=== PATIENT | female | born 2000 | race Two or more races ===

== ENCOUNTER 2024-08-23 10:18 | Emergency (ER) | payer MEDICAID, SELFPAY ==
[2024-08-23 10:35] VITALS: BP 122/77; PULSE 95; RESP 16; TEMP 36.7; O2SAT 100; BMI 37.3
--- NOTE | 2024-08-23 10:48 | XR_ITS ---
Examination: age Limited TECHNIQUE: Limited transabdominal sonographic images pelvis Exam date and time: August 23, 2024 1119 hours INDICATIONS: Vomiting diarrhea decreased movement beginning last night FINDINGS: Viable intrauterine gestation cephalic presentation spine maternal left Cardiac motion 138 BPM Cervix 3.4 cm closed IMPRESSION: Viable intrauterine gestation cephalic presentation
--- NOTE | 2024-08-23 11:34 | PD.EDNV ---
Nausea/Vomit./Diarrhea-RME/HPI General Chief complaint: Nausea/Vomiting/Diarrhea Stated complaint: CHILLS, VOMITING, DIARRHEA, ABD PAIN Time Seen by Provider: 08/23/24 10:25 Arrival date/time: 08/23/24 10:18 24-year-old female presents emergency department today stating she is approximately 36 weeks patient reports vomiting diarrhea and abdominal cramping after eating tacos last night Limitations: no limitations Related Data Home Medications ?Medication ?Instructions ?Recorded ?Confirmed albuterol sulfate 90 mcg/actuation 2 puff inhalation Q6H PRN 05/24/20 05/24/20 aerosol inhaler Bronchospasm Previous Rx's ?Medication ?Instructions ?Recorded prednisone 20 mg tablet 40 mg (2 x 20 mg) PO QDAY #10 tabs 05/24/20 omeprazole 20 mg tablet,delayed 20 mg PO QDAY #14 tabs 03/13/21 release Allergies Allergy/AdvReac Type Severity Reaction Status Date / Time No Known Allergies Allergy Verified 06/07/21 10:09 Review of Systems Review of Systems Systems Reviewed: All systems reviewed, normal except as documented Constitutional Constitutional: Reports system reviewed and no additional complaints, except as documented, Denies fever(s) and Denies headache(s) Eyes Eyes: Reports system reviewed and no additional complaints, except as documented and Denies blurry vision ENT Ears, Nose, Mouth, and Throat: Reports system reviewed and no additional complaints, except as documented, Denies headache(s), Denies nasal congestion and Denies nasal discharge Cardiovascular Cardiovascular: Reports system reviewed and no additional complaints, except as documented, Denies chest pain and Denies dyspnea Respiratory Respiratory: Reports system reviewed and no additional complaints, except as documented, Denies chest congestion, Denies cough and Denies dyspnea Gastrointestinal Gastrointestinal: Reports system reviewed and no additional complaints, except as documented, Denies abdominal pain, Reports cramping (With diarrhea) and Reports loose stools Integumentary/Breasts Skin/Breast: Reports system reviewed and no additional complaints, except as documented and Denies rash Neurologic Neurologic: Reports system reviewed and no additional complaints, except as documented, Reports as per HPI and Denies headache(s) Past Medical History Past Medical History CARDIAC: Negative Cardiac Disorders or Congestive Heart Failure RESPIRATORY: Positive Asthma; Negative Chronic Obstructive Pulmonary Disease (COPD) GENITOURINARY: Negative Renal Disease ENDOCRINE: Negative Diabetes Mellitus Type 1 or Diabetes Mellitus Type 2 HEMATOLOGIC: Negative Sickle Cell Disease Social History SMOKING STATUS: Former smoker ED Exam General Limitations: Present no limitations General appearance: Present alert and in no apparent distress Head Head exam: Present atraumatic Eye Eye exam: Present normal appearance, PERRL and EOMI ENT ENT exam: Present normal exam, normal oropharynx and mucous membranes moist Neck Neck exam: Present normal inspection, full ROM and trachea midline Chest Chest inspection: Present normal inspection and symmetric chest wall rise Respiratory Respiratory exam: Present normal lung sounds bilaterally Cardiovascular Cardiovascular exam: Present regular rate, normal rhythm and normal heart sounds Abdominal Exam Abdominal exam: Present soft and normal bowel sounds; Absent distention or tenderness Extremities Exam Extremities exam: Present normal inspection and full ROM Back Exam Back exam: Present normal inspection and full ROM Neurological Exam Neurological exam: Present alert, oriented X3 and CN II-XII intact Psychiatric Psychiatric exam: Present normal affect and normal mood Skin Skin exam: Present warm, dry, intact and normal color Course Quality Measures none Orders Category Date Time Status US OB limited Stat Exams 08/23/24 10:48 Completed Vital Signs Vital signs: Vital Signs Temperature 98.0 F 08/23/24 10:35 Pulse Rate 95 08/23/24 10:35 Respiratory Rate 16 08/23/24 10:35 Blood Pressure 122/77 08/23/24 10:35 Pulse Oximetry (%) 100 08/23/24 10:35 Oxygen Delivery Method Room Air 08/23/24 10:35 O2 saturation 100% room air within normal limits Nausea/Vomiting/Diarrhea MDM Narrative MDM Narrative:: 24-year-old female presents emergency department today stating she is approximately 36 weeks patient reports vomiting diarrhea and abdominal cramping after eating tacos last night On exam patient well-appearing patient is not appear toxic Ultrasound obtained Symptoms highly consistent with gastroenteritis/food poisoning Patient reports no vaginal bleeding no pelvic cramping Explained to the patient she should follow-up with [facility] for worsening symptoms return immediately Patient data External records reviewed:: [facility] previous records Clinical information provided by:: patient Social determinants that could affect healthcare access:: none Patient has the following chronic illnesses:: None How is presenting disease/condition affected by chronic disease/condition?: no chronic disease Evaluation data The following diagnostics were reviewed and interpreted by me:: radiology exam(s) Lab and/or radiology exams considered but not ordered:: Radiology obtain Interpretation Summary: Reviewed by me Medications / Prescriptions Medications / Prescriptions considered but not ordered:: Given no meds Medication administrations:: Given no meds Consultations Consultation(s) initiated? (list below): No Diagnosis Nausea Differential Diagnosis: traveler's diarrhea, food poisoning and gastroenteritis Most likely diagnosis given after review of the tests above:: Gastroenteritis Admission Indicated Admission indicated?: not indicated Admission Request Was there a request for admission?: No Disposition Plan Disposition Plan: Discharge Discharge Attestation Discharge Attestation: The patient and all family members were given an opportunity to ask questions and understood the discharge instructions. Discharge instructions specifically effects, indications for sooner follow up or return to the emergency department, and the expected course of current diagnosis. Patient condition: Stable Discharge Plan Plan Patient Disposition: HOME (Self Care) Disposition Comment: Stable Prescriptions/Referrals Prescriptions/Med Rec: No Action omeprazole 20 mg tablet,delayed release (DR/EC) 20 mg PO QDAY Qty: 14 0RF albuterol sulfate 90 mcg/actuation Hfa Aerosol Inhaler 2 puff INHALATION Q6H PRN (Reason: Bronchospasm) prednisone 20 mg tablet 40 mg PO QDAY Qty: 10 0RF Referrals: Terrence Andrea PA-C [Primary Care Provider] - 08/24/24 Problem List Clinical Impression: Gastroenteritis Patient/Caregiver Discharge Instructions Education Materials: How the Colon Works Additional Instructions: Please follow-up with [facility] as discussed for worsening symptoms return immediately Print Language: Bulgarian Stand Alone Forms: Nicol Award Info., Patient Portal Info Letter ELENO/SHLOMO Supervising Physician ELENO/SHLOMO Supervising Physician: Dr Burnette
== END 2024-08-23 11:43 | disposition home or self-care (01) ==
PROVIDERS: Emergency Provider Emergency Medicine; PCP Family Medicine
DX: O99.613 Diseases of the digestive system complicating pregnancy, third trimester (principal); K52.9 Noninfective gastroenteritis and colitis, unspecified; Z3A.36 36 weeks gestation of pregnancy
CPT/HCPCS: 76815; 99284

== ENCOUNTER 2024-09-24 19:29 | Inpatient (IN) | payer MEDICAID, SELFPAY ==
[2024-09-24] VITALS (7 sets, daily range): BP systolic 128–142; BP diastolic 71–79; PULSE 80–98; TEMP 37.1; O2SAT 98; BMI 39.2
[2024-09-24 20:23] LABS: Basophils % (Auto) 0 % (0-2.5); Eosinophils # (Auto) 0.1 Thou/mm3 (0.0-0.5); Eosinophils % (Auto) 1 % (0-10); Hematocrit 36.9 % (36.0-46.0); Hemoglobin 12.5 g/dL (12.0-16.0); Immature Granulocytes % (Auto) 1 % (0-0); Immature Granulocytes Auto 0.05 Thou/mm3 (0.00-0.00); Lymphocytes # (Auto) 1.9 Thou/mm3 (1.0-4.8); Lymphocytes % (Auto) 21 % (10-50); Mean Corpuscular HGB Conc 33.9 g/dl (31.0-37.0); Mean Corpuscular Hemoglobin 27.5 pg (25.0-35.0); Mean Corpuscular Volume 81 fL (80-100); Monocytes # (Auto) 0.8 Thou/mm3 (0.0-0.8); Monocytes % (Auto) 8 % (0-12); Neutrophils # (Auto) 6.5 Thou/mm3 (1.8-7.7); Neutrophils % (Auto) 70 % (37-80); Nucleated Red Blood Cell % 0 /100 WBC (0); Platelet Count 277 Thou/mm3 (140-440); RDW Standard Deviation 42.8 fL (36.4-46.3); Red Blood Count 4.54 Miln/mm3 (4.00-5.20); White Blood Count 9.2 Thou/mm3 (3.6-11.0)
--- NOTE | 2024-09-24 20:31 | XR_ITS ---
Examination: Complete OB ultrasound greater than 14 weeks Date and time of exam: September 24, 2024 at 2121 hrs. Indications: Preop induction of labor Findings: Viable intrauterine single fetus with single amniotic sac presentation cephalic Cardiac motion 155 BPM Placenta anterior grade 3 Umbilical cord insertion seen Amniotic fluid index 3.9 cm Cervix obscured by the fetus Ovaries obscured by the uterus. Composite estimated gestational age based on BPD, head circumference, abdominal circumference, femur length is 38 weeks 0 days Is estimated weight 3632.8 g. Survey of intracranial anatomy, spinal anatomy, abdominal anatomy, four-chamber heart performed with no abnormalities identified. Impression: Viable intrauterine gestation cephalic presentation Estimated gestational age 38 weeks 0 days Estimated weight 3632.8 g
[2024-09-24 22:48] LABS: Amphetamine/Metham Scrn,Ur OB Negative (Negative); Benzoylecgonine Screen, Ur OB Negative (Negative); Opiate Screen,Urine OB Negative (Negative); THC Screen,Urine OB Positive (Negative)
[2024-09-24 22:49] LABS: THC U Confirm* See Sep Rpt
[2024-09-24 23:06] LABS: Syphilis Nonreactive (Nonreactive)
[2024-09-25] VITALS (32 sets, daily range): BP systolic 120–154; BP diastolic 57–74; PULSE 74–107; RESP 16–18; TEMP 36.6–37.1
--- NOTE | 2024-09-25 09:19 | ESHP_ITS ---
Documentation for date of: 09/25/24 OB Labor/Induct. HPI History of Present Illness History of sections: No History of present illness: Presents for induction of labor at 41 weeks and one day. The patient was scheduled for induction on 09-16-2024 but has been refusing to come in and pushing her induction by one day at a time. She receives mental care at the [facility] with JOSE ALFREDO Flores. Her current has been uncomplicated, and she has been compliant with all her visits. The patient was group B strep positive on 09-05-2024, RPR-negative, and NIPT negative times three with all additional screening tests negative. Her initial panel on 02-29-2024 showed blood group O-positive, antibody screen negative, HIV-negative, gonorrhea and chlamydia negative, hepatitis B-negative, hepatitis C-negative, RPR nonreactive, and urine culture positive for gram- negative lactobacillus species. Diagnostic Test Results and Labs: - Group B Streptococcus (09-05-2024): Positive - RPR: Negative - NIPT: Negative times three - Initial panel (02-29-2024): Blood group O-positive, antibody screen negative, HIV-negative, gonorrhea and chlamydia negative, hepatitis B-negative, hepatitis C-negative, RPR nonreactive - Urine culture: Positive for gram-negative, lactobacillus species - [facility] ultrasound level 2 (04-25-2024): Single intrauterine gestation, heart tone 142, cephalic presentation, anterior placenta, normal cord appearance, amniotic fluid index within normal limits, cervical length 4.37 cm, adnexa within normal limits, anatomic screen within normal limits - Ultrasound on admission (09-24-2024): Viable intrauterine single gestation, cephalic presentation, heart rate 155, placenta anterior grade 3, amniotic fluid index 3.9, cervix obscured, ovaries obscured, composite estimated weight based on BPD, head circumference, abdominal circumference, and femur length is 38 weeks, estimated weight 3632 grams, anatomy survey within normal limitsts. History of Present Adequate Care: Yes Labs Labs: Positive: Group Beta Strep and Negative: HIV, Chlamydia and Gonorrhea Review of Systems Review of Systems Systems Reviewed: All systems reviewed, normal except as documented Past Medical History Surgical History SURGICAL: Negative Section Meds Home Medications and Allergies Home Medications ?Medication ?Instructions ?Recorded ?Confirmed ?Type albuterol sulfate 90 mcg/actuation 2 puff inhalation Q6H PRN 05/24/20 09/24/24 History aerosol inhaler Bronchospasm no.58-iron bisglycinate 400 cap PO DAILY 09/24/24 09/24/24 History 10 mg iron-folic acid 400 mcg capsule Allergies Allergy/AdvReac Type Severity Reaction Status Date / Time No Known Allergies Allergy Verified 09/24/24 19:56 OB Exam Physical Exam Vital signs: Temp Pulse BP Pulse Ox 98.8 F 84 134/72 H 98 09/25/24 03:24 09/25/24 07:50 09/25/24 07:50 09/24/24 20:18 Constitutional Constitutional: no acute distress Routine HEENT Exam Head: Present normocephalic and atraumatic Eye: Present EOMI and PERRL ENT: Present mucous membranes moist Routine Neck Exam Neck: Present supple and trachea midline Routine Cardiovascular Exam Cardiovascular: Present RRR Routine Abdominal Exam Abdominal: Present soft and normoactive bowel sounds Detailed Labor and Delivery Exam Comments: - Cervical exam: Cervix is fingertip thick and high. - presentation: Cephalic. - Axles present, measuring 15 by 15. - heart tones: Baseline 135 with moderate variability, no decelerations. - heart rate on ultrasound: 155. Routine Extremities Exam Extremities: Present full ROM Routine Skin Exam Skin: Present intact, dry and warm Routine Neurological Exam Neurological: Present alert, oriented X3 and CN II-XII intact Routine Psychiatric Exam Psychiatric: Present normal affect and normal thought process OB Results Labs 09/24/24 19:50 Labs: Short CBC 09/24/24 Range/Units 19:50 WBC 9.2 (3.6-11.0) Thou/mm3 Hgb 12.5 (12.0-16.0) g/dL Hct 36.9 (36.0-46.0) % Plt Count 277 (140-440) Thou/mm3 OB Assessment & Plan Assessment and Plan (1) Post term at 41 weeks gestation: Status: Acute Assessment and plan: Postterm : - 41 weeks and 1 day gestation - Admit for induction of labor - Cervidil for cervical ripening - Proceed to oxytocin once favorable Ramirez's score attained - Patient refusing to come in, pushing induction by one day at a time Obesity: - BMI 46.481, weight 246 pounds - Complicating - Encourage ambulation during latent phase - Confined to bed in active phase Group B Streptococcus: - Positive - Antibiotic prophylaxis with ampicillin Cervical Ripening and Induction: - IV access and fluids (lactated Ringer's at 125 cc/hour) - Continuous maternal- monitoring - Monitor for signs of infection - Cervix fingertip thick and high on admission Pain Management: - Epidural available at any time Delivery: - Anticipate vaginal delivery - presentation cephalic - Estimated weight 3632 grams (38 weeks) based on ultrasound (2) Obesity affecting in third trimester: Status: Acute
[2024-09-25] MEDS: MISOPROSTOL 50 mCg TABLET PO ×3 (13:05→21:32)
--- NOTE | 2024-09-25 19:56 | PD.LDPN ---
Documentation for date of: 09/25/24 OB Labor Progress Note Pain Control Pain control: tolerating well Pelvic Exam Dilation (cm): 1-3 Effacement (%): thick station: -3 Amniotic membrane status: Intact Contractions Monitor mode: External Contraction frequency: irreg Contraction duration: 20 Contraction phase: Resting Contraction intensity: Mild Status status: Category l Assessment and Plan Assessment: induction ongoing CNM Management MD Consulted (describe details below): Yes
[2024-09-26] VITALS (150 sets, daily range): BP systolic 106–152; BP diastolic 55–93; PULSE 58–112; RESP 17–22; TEMP 36.6–37.1; O2SAT 81–100
[2024-09-26] MEDS: MISOPROSTOL 50 mCg TABLET PO (01:38)
[2024-09-26] MEDS: OXYTOCIN in NS 30 units 30 UNIT/500 ML BAG IV (06:04)
[2024-09-26] MEDS: RINGERS LACTATED 1000 ML 1,000 ML 100 ML IV ×3 (06:06→12:12)
--- NOTE | 2024-09-26 07:34 | PD.LDPN ---
Documentation for date of: 09/26/24 OB Labor Progress Note Pain Control Pain control: tolerating well Pelvic Exam Dilation (cm): 3 Effacement (%): 60 station: -1 Amniotic membrane status: Intact Contractions Monitor mode: External Contraction frequency: irreg Contraction phase: Resting Contraction intensity: Mild Status status: Category l CNM Management MD Consulted (describe details below): Yes
[2024-09-26] MEDS: Ampicillin Inj 2,000 MG in SODIUM CHLORIDE 0.9% (P) 100 ML 200 MG IV (10:20)
--- NOTE | 2024-09-26 10:53 | PD.LDPN ---
Documentation for date of: 09/26/24 OB Labor Progress Note Pain Control Pain control: tolerating well Pelvic Exam Dilation (cm): 4 Effacement (%): 80 station: -1 Amniotic membrane status: Ruptured (SROM- lite mec) Contractions Monitor mode: External Contraction frequency: 5 minutes Contraction duration: 40-50 Contraction phase: Resting Contraction intensity: Moderate Status status: Category l Assessment and Plan Assessment: induction ongoing Plan OB labor note: continuous present management Comments: Continue pitocin Pt to get an epidural Start GBS protocol Anticipae
[2024-09-26] MEDS: Ampicillin Inj 1,000 MG in SODIUM CHLORIDE 0.9% (P) 50 ML 50 MG IV ×2 (14:19→18:20)
[2024-09-26] MEDS: BENZO/LANO/ALOE (Dermoplast) 60 GM CAN 1 SPRAY TOP (20:29)
[2024-09-26] MEDS: MINERAL OIL 30 ML UDC TOP (20:29)
[2024-09-26] MEDS: OXYTOCIN in NS 20 units 20 UNIT/1,000 ML BAG 125 UNIT IV (20:29)
[2024-09-26] MEDS: TRANEXAMIC ACID 1,000 MG IVPB 1,000 MG/100 ML BAG 200 MG IV ×2 (20:49→22:24)
[2024-09-26] MEDS: ceFAZolin/D5W 2 GM IV 2 GM/100 ML BAG IV (21:24)
--- NOTE | 2024-09-26 21:41 | PD.LDDELS ---
Data (David) Data Hx Section: No Maternal Blood Type: O Pos Rubella Titre: Positive RPR: Non-reactive Labs: Positive: Group Beta Strep, Negative: RPR, Hepatitis B, HIV, Chlamydia and Gonorrhea and Unknown: Herpes Type 1 and Herpes Type 2 : 1 Para: 0 Term: 0 : 0 Livin : 0 Delivery Data (David) Labor Data Stimulated/Augmented: No Induction: No ROM Date: 09/26/24 ROM Time: 10:07 Rupture Type: SROM Amniotic Fluid: Thin Meconium Delivery Data EDC: 09/16/24 EDC calculated by:: LMP/early US confirmation Labor Onset Stage 1 Date: 09/26/24 Labor Onset Stage 1 Time: 12:08 Labor Onset Stage 2 Date: 09/26/24 Labor Onset Stage 2 Time: 19:08 Delivery Date: 09/26/24 Delivery Time: 20:20 Gestational age (weeks): 41 Gestational age (days): 3 Placenta Delivery Date: 09/26/24 Placenta Delivery Time: 20:36 Delivered by: Leighann Flores Delivery nurse: Atiya Will Health Policy Analyst at delivery: No Support person(s) at delivery: FOB Delivery Method Delivery: Vaginal Delivery Type: Spontaneous Presentation: Vertex Position: OA Anesthesia Type Primary Anesthesia: Epidural Delivery Room Medications Intrapartum Medications: Antibiotics Post Delivery Medications: Antibiotics Post Delivery Medications N/A: Yes Placenta Placenta Delivery: Spontaneous Placenta Cultures Obtained: No Placenta Sent for Examination: No Cord Sample: Cord Blood Obtained Episiotomy Episiotomy: None Lacerations #1: Vaginal: 2nd degree Perineal repair Sutures used for repair: 3.0 Vicryl (CT) EBL Estimated blood loss (ml): 400 Umbilical Cord Umbilical Vessels: 3 Nuchal Cord: x1 Body Cord: Not Applicable Additional Procedures Patient was complete this evening and after a few pushes had an of a viable female . Infant's head delivered with a tight nuchal cord reduced. 's anterior shoulder delivered with gentle downward traction subsequent deliver the posterior shoulder and the body without complications. placed on mother's abdomen. Vigorous cry upon stimulation. Cord was clamped cut by CNM. Cord blood obtained. Three-vessel cord noted. Placenta expelled spontaneously and intact. Patient sustained multiple lacerations within the vagina repaired using a 3-[address] suture x 3. Due to friable tissue a vaginal packing was placed and will be removed tomorrow by CNM. Perineum intact. Patient received TXA x 1 and IV Pitocin. She will receive another TXA tonight. Excellent hemostasis achieved after vigorous fundal massage and removal of clots from the posterior fornix. EBL 400. Sponge and needle count correct. was transferred to NICU for observation. Mother is stable and recovering in LDR. 2 g of Ancef x 1 now. Hornell Data (David) Hornell Data Infant Gender: Female Weight Grams: 3800 1 Minute Total: 7 5 Minute Total: 9 10 Minute Total: 9
--- NOTE | 2024-09-26 22:00 | PC.NURSE ---
2039- in and out catheter by colt porras cnm, noted 50 ml out.
[2024-09-27 01:03] VITALS: BP 131/75; PULSE 85; RESP 18; TEMP 36.4; O2SAT 99
[2024-09-27] MEDS: HYDROcodone/APAP 5/325 TABLET 1 TAB PO ×2 (01:22→10:08)
[2024-09-27 03:39] LABS: Basophils % (Auto) 0 % (0-2.5); Eosinophils % (Auto) 0 % (0-10); Hematocrit 34.5 % (36.0-46.0); Hemoglobin 11.6 g/dL (12.0-16.0); Immature Granulocytes % (Auto) 0 % (0-0); Immature Granulocytes Auto 0.08 Thou/mm3 (0.00-0.00); Lymphocytes # (Auto) 1.8 Thou/mm3 (1.0-4.8); Lymphocytes % (Auto) 10 % (10-50); Mean Corpuscular HGB Conc 33.6 g/dl (31.0-37.0); Mean Corpuscular Hemoglobin 27.6 pg (25.0-35.0); Mean Corpuscular Volume 82 fL (80-100); Monocytes # (Auto) 1.5 Thou/mm3 (0.0-0.8); Monocytes % (Auto) 8 % (0-12); Neutrophils # (Auto) 14.7 Thou/mm3 (1.8-7.7); Neutrophils % (Auto) 81 % (37-80); Nucleated Red Blood Cell % 0 /100 WBC (0); Platelet Count 220 Thou/mm3 (140-440); RDW Standard Deviation 43.2 fL (36.4-46.3); Red Blood Count 4.21 Miln/mm3 (4.00-5.20); White Blood Count 18.1 Thou/mm3 (3.6-11.0)
[2024-09-27 05:20] VITALS: BP 125/70; PULSE 98; RESP 20; TEMP 36.6; O2SAT 98
--- NOTE | 2024-09-27 07:01 | PC.NURSE ---
DALILAM Leighann Flores called to inform of WBC values from 9.2 to 18.1, high heart rates ranging in high 90s, and high BP. Per Leighann, do a repeat CBC for 0900
[2024-09-27 08:00] VITALS: BP 125/82; PULSE 96; RESP 18; TEMP 36.9; O2SAT 98
[2024-09-27] MEDS: IBUPROFEN TAB 400 MG TABLET 800 MG PO ×2 (08:27→20:33)
[2024-09-27] MEDS: DOCUSATE SOD 100 MG CAPSULE PO ×2 (08:27→20:33)
--- NOTE | 2024-09-27 10:01 | ESPR_ITS ---
Subjective Subjective Interval history: day 1. Patient is stable and afebrile doing well. Denies dizziness shortness of breath. [place] is still in place. Breast-feeding infant. No complaints. Exam Vital Signs Temp Pulse Resp BP Pulse Ox O2 Del Method 98.5 F 96 18 125/82 98 Room Air 09/27/24 08:00 09/27/24 08:00 09/27/24 08:00 09/27/24 08:00 09/27/24 08:00 09/27/24 08:00 Constitutional Constitutional: no acute distress Routine HEENT Exam Head: Present normocephalic and atraumatic Eye: Present EOMI, PERRL and normal accommodation ENT: Present mucous membranes moist Routine Neck Exam Neck: Present supple, full ROM and trachea midline Routine Respiratory Exam Respiratory: Present chest non-tender, lungs clear, normal breath sounds and no resp distress Routine Cardiovascular Exam Cardiovascular: Present RRR Routine Abdominal Exam Abdominal: Present soft and normoactive bowel sounds Routine Exam External: Present normal urethra appearance and lacerations (healing, removed vaginal packing); Absent lesions Routine Extremities Exam Extremities: Present full ROM Routine Back/Spine/Pelvis Exam Back/Spine: Present full ROM Routine Skin Exam Skin: Present intact, dry and warm Routine Neurological Exam Neurological: Present alert, oriented X3 and CN II-XII intact Routine Psychiatric Exam Psychiatric: Present normal affect and normal thought process Objective Labs 09/27/24 03:19 Labs: Laboratory Results - last 24 hr 09/27/24 03:19 WBC 18.1 H D RBC 4.21 Hgb 11.6 L Hct 34.5 L MCV 82 MCH 27.6 MCHC 33.6 RDW Std Deviation 43.2 Plt Count 220 D Neut % (Auto) 81 H Lymph % (Auto) 10 [place] % (Auto) 8 Eos % (Auto) 0 Baso % (Auto) 0 Neut # (Auto) 14.7 H Lymph # (Auto) 1.8 [place] # (Auto) 1.5 H Eos # (Auto) 0.0 Baso # (Auto) 0.0 Immature Gran # (Auto) 0.08 H Absolute Nucleated RBC 0.00 Immature Gran % 0 Nucleated RBC % 0 Assessment & Plan Problem List (1) Normal spontaneous vaginal delivery: Status: Acute (2) Encounter for care of lactating mother: Status: Acute (3) Obesity affecting in third trimester: Status: Acute (4) Post term at 41 weeks gestation: Status: Acute Plan Comment Plan Comment: Vaginal packing was removed patient tolerated procedure well bleeding is minimal laceration is healing. Continue routine care. DC alon Mon[place]. Encourage patient to ambulate more today. Anticipate discharge home tomorrow. Time Spent With Patient Time: Total time spent is greater than 50% in coordination of care (as documented) at patient's floor/unit and/or counseling patient:
[2024-09-27 10:53] LABS: Basophils % (Auto) 0 % (0-2.5); Eosinophils # (Auto) 0.1 Thou/mm3 (0.0-0.5); Eosinophils % (Auto) 1 % (0-10); Hematocrit 32.6 % (36.0-46.0); Hemoglobin 10.8 g/dL (12.0-16.0); Immature Granulocytes % (Auto) 1 % (0-0); Immature Granulocytes Auto 0.09 Thou/mm3 (0.00-0.00); Lymphocytes # (Auto) 2.6 Thou/mm3 (1.0-4.8); Lymphocytes % (Auto) 18 % (10-50); Mean Corpuscular HGB Conc 33.1 g/dl (31.0-37.0); Mean Corpuscular Hemoglobin 27.5 pg (25.0-35.0); Mean Corpuscular Volume 83 fL (80-100); Monocytes # (Auto) 1.4 Thou/mm3 (0.0-0.8); Monocytes % (Auto) 10 % (0-12); Neutrophils # (Auto) 10.4 Thou/mm3 (1.8-7.7); Neutrophils % (Auto) 71 % (37-80); Nucleated Red Blood Cell % 0 /100 WBC (0); Platelet Count 234 Thou/mm3 (140-440); Red Blood Count 3.93 Miln/mm3 (4.00-5.20); White Blood Count 14.6 Thou/mm3 (3.6-11.0)
--- NOTE | 2024-09-27 11:25 | PC.CC ---
Tari Sandoval is a 24-year-old female admitted for labor and delivery. Photographer News made contact with Pt at bedside to complete social service assessment and discuss discharge disposition. Role and reason for the contact was explained to Pt. Demographic information was verified. Pt identified Casey Copeland as her surrogate decision maker. Pt is independent with all ADLs, no DME. PCP is [facility]. At time of discharge patient will return home, father of baby will provide transportation. Discharge Plan: Home Next of Kin: Casey Copeland PCP: [facility]
[2024-09-27 12:00] VITALS: BP 134/78; PULSE 95; RESP 18; TEMP 36.8; O2SAT 97
--- NOTE | 2024-09-27 12:00 | PC.CC ---
CWS report, called completed and report faxed.
[2024-09-27 15:45] VITALS: BP 131/84; PULSE 80; RESP 17; TEMP 36.7; O2SAT 99
[2024-09-27] MEDS: ACETAMINOPHEN 325 MG TABLET 650 MG PO (16:40)
[2024-09-27 21:00] VITALS: BP 130/66; PULSE 93; RESP 18; TEMP 36.6; O2SAT 99
[2024-09-28 04:00] VITALS: BP 140/74; PULSE 77; RESP 18; TEMP 36.4; O2SAT 97
[2024-09-28] MEDS: IBUPROFEN TAB 400 MG TABLET 800 MG PO (04:45)
--- NOTE | 2024-09-28 08:33 | PD.LDDS ---
DS: Providers Provider Date of admission: 09/24/24 19:29 Primary care physician: eTrrence Andrea PA-C Admitting Provider: Leighann Flores CNM Attending Provider on Admission: Zaid Ramirez MD Attending Provider on DC: Leighann Flores CNM Discharging Provider: Leighann Flores CNM Anticipated date of discharge: 09/27/24 DS: Diagnosis Discharge Diagnosis (1) Normal spontaneous vaginal delivery: Status: Acute (2) Encounter for care of lactating mother: Status: Acute (3) Obesity affecting in third trimester: Status: Acute (4) Post term at 41 weeks gestation: Status: Acute Problem List Completed Was Problem List Reviewed/Reconciled?: Yes Summary/Hosp Course Brief History: Presents for induction of labor at 41 weeks and one day. The patient was scheduled for induction on 09-16-2024 but has been refusing to come in and pushing her induction by one day at a time. She receives mental care at the [facility] with JOSE ALFREDO Flores. Her current has been uncomplicated, and she has been compliant with all her visits. The patient was group B strep positive on 09-05-2024, RPR-negative, and NIPT negative times three with all additional screening tests negative. Her initial panel on 02-29-2024 showed blood group O-positive, antibody screen negative, HIV-negative, gonorrhea and chlamydia negative, hepatitis B-negative, hepatitis C-negative, RPR nonreactive, and urine culture positive for gram-negative lactobacillus species. Diagnostic Test Results and Labs: - Group B Streptococcus (09-05-2024): Positive - RPR: Negative - NIPT: Negative times three - Initial panel (02-29-2024): Blood group O-positive, antibody screen negative, HIV-negative, gonorrhea and chlamydia negative, hepatitis B-negative, hepatitis C-negative, RPR nonreactive - Urine culture: Positive for gram-negative, lactobacillus species - [facility] ultrasound level 2 (04-25-2024): Single intrauterine gestation, heart tone 142, cephalic presentation, anterior placenta, normal cord appearance, amniotic fluid index within normal limits, cervical length 4.37 cm, adnexa within normal limits, anatomic screen within normal limits - Ultrasound on admission (12-29-2024): Viable intrauterine single gestation, cephalic presentation, heart rate 155, placenta anterior grade 3, amniotic fluid index 3.9, cervix obscured, ovaries obscured, composite estimated weight based on BPD, head circumference, abdominal circumference, and femur length is 38 weeks, estimated weight 3632 grams, anatomy survey within normal limitsts. 09/26/24: Patient was complete this evening and after a few pushes had an of a viable female . Infant's head delivered with a tight nuchal cord reduced. Infant's anterior shoulder delivered with gentle downward traction subsequent deliver the posterior shoulder and the body without complications. Infant placed on mother's abdomen. Vigorous cry upon stimulation. Cord was clamped cut by CNM. Cord blood obtained. Three-vessel cord noted. Placenta expelled spontaneously and intact. Patient sustained multiple lacerations within the vagina repaired using a 3-[address] suture x 3. Due to friable tissue a vaginal packing was placed and will be removed tomorrow by CNM. Perineum intact. Patient received TXA x 1 and IV Pitocin. She will receive another TXA tonight. Excellent hemostasis achieved after vigorous fundal massage and removal of clots from the posterior fornix. EBL 400. Sponge and needle count correct. Infant was transferred to NICU for observation. Mother is stable and recovering in LDR. 2 g of Ancef x 1 now. 09/27/2024: day 1. Patient is stable and afebrile doing well. No complaints. Denies dizziness shortness of breath. Vaginal packing was removed patient tolerated procedure well bleeding is minimal laceration is healing. Continue routine care. DC the [place]. Encourage patient to ambulate more today. Anticipate discharge home tomorrow. 09/28/2024: day 2 patient is stable and afebrile doing well. No complaints. Denies dizziness shortness of breath. Reports minimal lochia. Patient is breast-feeding and bottlefeeding. Eager to go home. Uterus nontender fundus firm minimal lochia. Discharge instructions given. Patient to follow-up with Leighann Flores CNM in 3 weeks Peripartum Data Delivery Method: Normal Vaginal Delivery Episiotomy Description: None Laceration Description: yes and see Delivery Summary complications: other (Vaginal laceration) [place] 1: Gender: Female Disposition of : home Status at Discharge Cognitive/behavioral status at discharge: Alert and oriented x 3 Functional status at discharge: independent ambulation Overall status at discharge: patient is progressing back to baseline Time Spent with Patient Time attestation: Total time spent providing and/or coordinating discharge services: Time spent: Greater than 30 minutes Exam Vital Signs Temp Pulse Resp BP Pulse Ox 98.4 F 93 22 H 136/70 H 100 09/26/24 19:14 09/26/24 20:48 09/26/24 19:14 09/26/24 20:48 09/26/24 15:59 Constitutional Constitutional: no acute distress Routine HEENT Exam Head: Present normocephalic and atraumatic Eye: Present EOMI, PERRL and normal accommodation ENT: Present mucous membranes moist Routine Neck Exam Neck: Present supple, full ROM and trachea midline Routine Respiratory Exam Respiratory: Present chest non-tender, lungs clear, normal breath sounds and no resp distress Routine Cardiovascular Exam Cardiovascular: Present RRR Routine Abdominal Exam Abdominal: Present soft and normoactive bowel sounds; Absent tenderness or distended Comments: Uterus nontender Fundus Routine Exam External: Present normal urethra appearance, swelling and lacerations (healing, vaginal packing removed); Absent tenderness or lesions Routine Extremities Exam Extremities: Present full ROM, pulses intact and normal capillary refill; Absent calf tenderness or tenderness Routine Back/Spine/Pelvis Exam Back/Spine: Present full ROM Routine Skin Exam Skin: Present intact, dry and warm Routine Neurological Exam Neurological: Present alert, oriented X3 and CN II-XII intact Routine Psychiatric Exam Psychiatric: Present normal affect and normal thought process Discharge Plan Plan Patient Disposition: HOME (Self Care) Patient condition on transfer: Stable Prescriptions/Referrals Prescriptions/Med Rec: New ibuprofen 800 mg tablet 800 mg PO Q6H MDD 4 PRN (Reason: pain) Qty: 120 0RF hydrocortisone [Proctosol HC] 2.5 % cream with perineal applicator 1 applic MS QDAY PRN (Reason: hemorrhoids) Qty: 30 0RF docusate sodium [Colace] 100 mg capsule 100 mg PO BID Qty: 60 0RF lanolin 50 % ointment 1 applic topical TID PRN (Reason: skin irritation) Qty: 15 0RF Tucks (witch bonifacio) 50 % pads, medicated 1 pad topical BID Qty: 100 0RF Continued albuterol sulfate 90 mcg/actuation Hfa Aerosol Inhaler 2 puff INHALATION Q6H PRN (Reason: Bronchospasm) PNV comb no.58-iron bisgly-FA 10-400 mg-mcg Capsule 400 cap PO DAILY Referrals: Terrence Andrea PA-C [Primary Care Provider] - Patient/Caregiver Discharge Instructions Meds to Beds: No Discharge Activity: activity as tolerated Other Discharge Activity Instructions:: Follow-up with Leighann Flores CNM in 3 weeks Education Materials: After a Vaginal , Understanding Blues, : Caring for Yourself Print Language: Ukrainian Stand Alone Forms: [place] Info., Patient Portal Info Letter Discharge Order Discharge Orders: Discharge (Routine); Ordered 09/28/24 Ordered By: Leighann Flores Planned Discharge Date 09/27/2024 (3) Obesity affecting in third trimester Qualifiers: Obesity type affecting : other obesity due to excess calories Qualified Code(s): O99.213 - Obesity complicating , third trimester; E66.09 - Other obesity due to excess calories
[2024-09-28 08:50] VITALS: BP 141/91; PULSE 94; RESP 17; TEMP 37.1; O2SAT 98
[2024-09-28] MEDS: DOCUSATE SOD 100 MG CAPSULE PO (08:57)
== END 2024-09-28 13:35 | disposition home or self-care (01) | DRG 560 ==
LOC: S4SX 09-26 21:04 → S4NX 09-27 02:12
PROVIDERS: Admitting Provider Nurse Practitioner Women's Health; PCP Family Medicine; Visit Provider Obstetrics & Gynecology
DX: O48.0 Post-term pregnancy (principal); O99.214 Obesity complicating childbirth; O69.1XX0 Labor and delivery complicated by cord around neck, with compression, not applicable or unspecified; Z37.0 Single live birth; Z3A.41 41 weeks gestation of pregnancy; O99.824 Streptococcus B carrier state complicating childbirth; O77.0 Labor and delivery complicated by meconium in amniotic fluid; O70.1 Second degree perineal laceration during delivery
CPT/HCPCS: 36415; 59409; 76805; 80307; 85025; 86780; 86850; 86900; 86901; 94762; J0290; J0689; J2590; J2795; J3010; J3490; J7050; J7120; A9270; J0690

== ENCOUNTER 2024-09-28 21:44 | Emergency (ER) | payer MEDICAID, SELFPAY ==
[2024-09-28 21:46] VITALS: BMI 39.1
[2024-09-28 22:23] VITALS: BP 138/83; PULSE 93; RESP 18; TEMP 36.8; O2SAT 97
--- NOTE | 2024-09-28 22:32 | PD.EDRME ---
Rapid Medical Screening Exam E Arrival date/time: 09/28/24 21:44 24 year old female present to Ed for c/o of right lower leg pain for 1 day. recent given I have greeted and performed a focused initial assessment of this patient. A comprehensive ED assessment and evaluation of the patient, analysis of all test results, and completion of the medical decision making process will be conducted by additional ED providers. Chief Complaint: Extremity Injury, Lower Time Seen by Provider: 09/28/24 21:50 Vital signs: Vital Signs Temperature 98.3 F 09/28/24 22:23 Pulse Rate 93 09/28/24 22:23 Respiratory Rate 18 09/28/24 22:23 Blood Pressure 138/83 H 09/28/24 22:23 Pulse Oximetry (%) 97 09/28/24 22:23 Oxygen Delivery Method Room Air 09/28/24 22:23
--- NOTE | 2024-09-29 00:51 | PC.NURSE ---
PT CALLED BACK FROM [facility] NO ANSWER
--- NOTE | 2024-09-29 01:55 | PC.NURSE ---
PT CALLED BACK [facility] NO ANSWER
--- NOTE | 2024-09-29 02:44 | PC.NURSE ---
PT CALLED BACK FROM [facility] NO ANSWER
== END 2024-09-29 00:51 | disposition left against medical advice (07) ==
LOC: SERX 22:44
PROVIDERS: Emergency Provider Emergency Medicine
DX: M79.661 Pain in right lower leg (principal)
CPT/HCPCS: 99281